=== PATIENT | female | born 1995 | race Asian ===

== ENCOUNTER → 2017-02-25 | Outpatient (CLI) | payer OTHER ==
[~2017-02-25] MED LIST: IOPAMIDOL (ISOVUE 370) 100 ML BTL IV ONE
== END ==
LOC: FIMAGING 13:52
PROVIDERS: ATTEND Internal Medicine Cardiovascular Disease
DX: Z03.89 Encounter for observation for other suspected diseases and conditions ruled out (principal); I10 Essential (primary) hypertension
CPT/HCPCS: Q9967

== ENCOUNTER 2017-03-23 22:23 | Emergency (ER) | payer OTHER ==
[2017-03-23 22:28] VITALS: RESP 18; TEMP 98.4
--- NOTE | 2017-03-23 23:41 | EDPHY ---
H & P Time Seen by Provider: 03/23/17 22:30 HPI/ROS: CHIEF COMPLAINT: left middle fingernail injury HISTORY OF PRESENT ILLNESS: 21-year-old female presents with an injury to her left middle fingernail. Patient reports she slammed her finger in the front door of her house accidentally, it ripped her fingernail off. Tetanus is up-to- date, she denies other complaints. Smoking Status: Light smoker Physical Exam: GEN: Awake, alert, oriented, no acute distress RESP: nl resp effort MSK: Left middle finger with full active flexion and extension at DIP, PIP and mcp joints. 2 point discrimination intact, cap refill less than 2 seconds SKIN: Left middle finger with fingernail avulsed, horizontal laceration through center of nail bed Constitutional: Initial Vital Signs Temperature (C) 36.9 C 03/23/17 22:27 Heart Rate 70 03/23/17 22:27 Respiratory Rate 18 03/23/17 22:27 Blood Pressure 171/121 H 03/23/17 22:27 O2 Sat (%) 100 03/23/17 22:27 O2 Delivery Mode Room Air Allergies/Adverse Reactions: No Known Allergies Allergy (Unverified 03/23/17 22:28) Home Medications: Medication Instructions Recorded Levonorgestrel [Heide] 1 each IY 03/23/17 MDM/Departure - MDM Imaging Results: Imaging Impressions Finger X-Ray 03/23/17 22:57 Impression: No acute osseous findings. Procedures: Procedure: Laceration repair. Verbal consent was obtained from the patient. The 0.5 cm laceration on the left middle finger nail bed was anesthetized using digital block using 1% lidocaine without epinephrine. The wound was carefully irrigated by the emergency department aviation survival technician. Next, the wound was prepped and draped in sterile fashion and explored to its base with a gloved finger. Nail bed lacerated No tendon injury was identified. No vascular injury was identified. No foreign bodies were identified. The wound was repaired with 6.0 Vicryl, 4 simple interrupted sutures. The wound repair was simple. The procedure was performed by myself. Tetanus and antibiotic status were addressed. ED Course/Re-evaluation: Patient has a known history of hypertension, she just followed up with a junior copywriter and was prescribed medication which she has not started yet. Patient denies headache, dizziness, chest pain. I have discussed the importance of starting this medication. - Depart Disposition: Home, Routine, Self-Care Clinical Impression: Laceration of nail bed of finger Qualifiers: Encounter type: initial encounter Qualified Code(s): S61.319A - Laceration without foreign body of unspecified finger with damage to nail, initial encounter Condition: Good Instructions: Nail Avulsion (ED), Hydrocodone/Acetaminophen (By mouth) Additional Instructions: Keep dressing in place until you follow up with the hand doctor. I have listed 2 different hand doctors. Call tomorrow morning to schedule an appointment to be seen in the next 2-3 days. Elevate your finger. Take 600 mg of ibuprofen every 8 hours with food as needed for pain, take [employer] for severe pain. Referrals: Saturnino Harrington MD [Medical Doctor] - As per Instructions (Hand doctor) Reji Verdin MD [Medical Doctor] - As per Instructions (Hand doctor)
[2017-03-24] MEDS ORDERED: HYDROCOD/APAP 5/325 PREPACK#6 BTL TAKEHOME ONE (00:08)
[2017-03-24 00:35] VITALS: BP 162/113; PULSE 65; O2SAT 97
== END 2017-03-24 00:35 | disposition home or self-care (01) ==
PROC: 0HQQXZZ Repair Finger Nail, External Approach (ICD-10-PCS; principal; 2017-03-23)
DX: S61.313A Laceration without foreign body of left middle finger with damage to nail, initial encounter (principal); F17.200 Nicotine dependence, unspecified, uncomplicated; W23.0XXA Caught, crushed, jammed, or pinched between moving objects, initial encounter; Y92.009 Unspecified place in unspecified non-institutional (private) residence as the place of occurrence of the external cause